=== PATIENT | female | born 1965 | race Caucasian/White ===

== ENCOUNTER 2019-04-05 12:35 | Emergency (ER) | payer BC ==
--- NOTE | 2019-04-05 12:51 | ER Document Report ---
ED Medical Screen (RME) - General Chief Complaint: Psych Problem Stated Complaint: PSYCH EVAL Time Seen by Provider: 04/05/19 12:45 Mode of Arrival: Ambulatory Information source: Patient, Relative - Brother Notes: Patient is a 53-year-old female from [facility] presenting to the emergency department with acute complaints of mental health issues. Patient reports she drove here last night from [place] to be with her brother and she states she is having the feeling of withdrawal symptoms. Patient denies taking any medications. Patient's brother states that patient has been talking out of her head, she believes that people are her worker after her, she believes that she is in danger. They both deny any documented mental health history. Patient is very tearful in triage I have greeted and performed a rapid initial assessment of this patient. A comprehensive ED assessment and evaluation of the patient, analysis of test results and completion of the medical decision making process will be conducted by additional ED providers. I have specifically instructed the patient or family members with the patient to immediately return to any nursing staff should anything change in the patient's condition or with their chief complaint. This medical record was dictated with voice recognizing software. There may be grammatical, syntax errors that are unintended.
[2019-04-05 13:36] LABS: ABSOLUTE BASOPHILS # (AUTO) 0.1 10^3/uL (0.0-0.2); ABSOLUTE EOSINOPHILS # (AUTO) 0.1 10^3/uL (0.0-0.6); ABSOLUTE LYMPHOCYTES (AUTO) 1.8 10^3/uL (0.5-4.7); ABSOLUTE MONOCYTES (AUTO) 0.9 10^3/uL (0.1-1.4); ABSOLUTE NEUT (AUTO) 9.1 10^3/uL (1.7-8.2); BASOPHILS % (AUTO) 0.5 % (0-2); EOSINOPHILS % (AUTO) 0.7 % (0-6); HEMOGLOBIN 14.6 g/dL (12.0-15.5); LYMPHOCYTES % (AUTO) 15.3 % (13-45); MEAN CORPUSCULAR HEMOGLOBIN 30.2 pg (27.0-33.4); MEAN CORPUSCULAR VOLUME 89 fl (80-97); MONOCYTES % (AUTO) 7.7 % (3-13); PLATELET COUNT 283 10^3/uL (150-450); RED BLOOD COUNT 4.85 10^6/uL (3.72-5.28); RED CELL DISTRIBUTION WIDTH 12.7 % (11.5-14.0); SEGMENTED NEUTROPHILS % (AUTO) 75.8 % (42-78); TOTAL CELLS COUNTED % (AUTO) 100 %
[2019-04-05 13:54] LABS: URINE AMPHETAMINES SCREEN NEGATIVE; URINE BARBITURATES SCREEN NEGATIVE; URINE BENZODIAZEPINES SCREEN NEGATIVE; URINE COCAINE SCREEN NEGATIVE; URINE MARIJUANA (THC) SCREEN NEGATIVE; URINE METHADONE SCREEN NEGATIVE; URINE PHENCYCLIDINE SCREEN NEGATIVE
[2019-04-05 13:55] LABS: ALBUMIN 4.8 g/dL (3.5-5.0); ALKALINE PHOSPHATASE 108 U/L (38-126); ANION GAP 13 (5-19); ASPARTATE AMINO TRANSFERASE 24 U/L (14-36); BILIRUBIN,DIRECT 0.1 mg/dL (0.0-0.4); BILIRUBIN,TOTAL 0.5 mg/dL (0.2-1.3); BLOOD UREA NITROGEN 14 mg/dL (7-20); CALCIUM 10.1 mg/dL (8.4-10.2); CARBON DIOXIDE 26 mmol/L (22-30); CHLORIDE 104 mmol/L (98-107); GLUCOSE 104 mg/dL (75-110); POTASSIUM 3.8 mmol/L (3.6-5.0); SALICYLATE 1.1 mg/dL (2.0-20.0); TOTAL PROTEIN 8.5 g/dL (6.3-8.2)
[2019-04-05 13:57] LABS: ACETAMINOPHEN < 10 ug/mL (10-30); ALCOHOL < 10 mg/dL (NONE DETECTED)
--- NOTE | 2019-04-05 14:29 | ER Document Report ---
ED Psych Disorder / Suicide - General Mode of Arrival: Ambulatory <DERREK DUMONT - Last Filed: 04/05/19 18:50> <GINA THURSTON - Last Filed: 04/05/19 22:32> <RASHAD VELASQUEZ - Last Filed: 04/08/19 15:35> - General Chief Complaint: Depression Stated Complaint: PSYCH EVAL Time Seen by Provider: 04/05/19 12:45 Notes: Patient is a 53-year-old female from [facility] with no past mental health history presenting to the emergency department with acute complaints of mental health issues. Patient reports she drove here last night from [place] to be with her brother and she states she is having the feeling of withdrawal symptoms. Patient denies taking any medications. Patient's brother states that patient has been talking out of her head, she believes "members" are out to get her at work and she feels like she is in danger. She denies any suicidal ideations or homicidal ideations denies any auditory or visual hallucinations. Of note, patient's is in route from [place]. (DERREK DUMONT) Past Medical History - General Information source: Patient, Relative - Brother - Social History Smoking Status: Never Smoker Frequency of alcohol use: None Drug Abuse: None Family History: None Patient has suicidal ideation: No Patient has homicidal ideation: No <DERREK DUMONT - Last Filed: 04/05/19 18:50> Review of Systems - Review of Systems Constitutional: No symptoms reported EENT: No symptoms reported Cardiovascular: No symptoms reported Respiratory: No symptoms reported Gastrointestinal: No symptoms reported Genitourinary: No symptoms reported Female Genitourinary: No symptoms reported Musculoskeletal: No symptoms reported Skin: No symptoms reported Hematologic/Lymphatic: No symptoms reported Neurological/Psychological: See HPI <DERREK DUMONT - Last Filed: 04/05/19 18:50> Physical Exam <DERREK DUMONT - Last Filed: 04/05/19 18:50> - Vital signs Vitals: Temp Pulse Resp BP Pulse Ox 98 F 95 28 H 132/96 H 100 04/05/19 12:53 04/05/19 12:53 04/05/19 12:53 04/05/19 12:53 04/05/19 12:53 - Notes Notes: PHYSICAL EXAMINATION: Reviewed vital signs and charting by RN GENERAL: Alert, interacts well. No acute distress. HEAD: Normocephalic, atraumatic. EYES: Pupils equal and round. Extraocular movements intact. ENT: Oral mucosa moist, tongue midline. NECK: Full range of motion. Trachea midline. LUNGS: Clear to auscultation bilaterally, no wheezes, rales, or rhonchi. No respiratory distress. HEART: Regular rate and rhythm. No murmur ABDOMEN: soft, non-tender. No distention. Bowel sounds present EXTREMITIES: Moves all 4 extremities spontaneously. No edema, No cyanosis. PSYCH: Patient is alert and orientated to person, place, time and circumstance, patient is very anxious and tearful. Mood is depressed with congruent affect. Patient denies suicidal and homicidal ideation. Patient does not have a linear thought process at this time but is not tangential. Poor eye contact. Conversational speech is staggered and she is unable to complete full sentences. Intellectual abilities appear to be within the average range. Attention and concentration are currently good. SKIN: Warm, dry, normal turgor. No rashes or lesions noted. (DERREK DUMONT) Course - Laboratory Result Diagrams: 04/05/19 13:15 04/05/19 13:15 <DERREK DUMONT - Last Filed: 04/05/19 18:50> - Laboratory Result Diagrams: 04/05/19 13:15 04/05/19 13:15 <RASHAD VELASQUEZ - Last Filed: 04/08/19 15:35> - Re-evaluation Re-evalutation: 04/05/19 18:47 Patient very tearful upon initial evaluation. She could not put logical thoughts together and just kept referring to the members her work. Blood work all returned within normal limits. Urinalysis showed moderate leuk esterase with 24 WBCs. It has been sent for urine culture. Urine drug screen negative. EKG showed sinus rhythm, rate 93, normal axis, QTC 458, no ST segment elevation or depression. Patient has been medically cleared for psychiatric evaluation. (DERREK DUMONT) - Vital Signs Vital signs: Temp Pulse Resp BP Pulse Ox 97.9 F 73 16 120/76 99 04/08/19 13:50 04/08/19 13:50 04/08/19 13:50 04/08/19 13:50 04/08/19 13:50 - Laboratory Laboratory results interpreted by me: 04/05/19 04/05/19 04/05/19 13:15 13:15 17:51 WBC 12.0 H Absolute Neuts (auto) 9.1 H Total Protein 8.5 H Urine Protein 30 H Urine Ketones 80 H Urine Urobilinogen 2.0 H Ur Leukocyte Esterase MODERATE H Salicylates 1.1 L Acetaminophen < 10 L Discharge <DERREK DUMONT - Last Filed: 04/05/19 18:50> <GINA THURSTON - Last Filed: 04/05/19 22:32> <RASHAD VELASQUEZ - Last Filed: 04/08/19 15:35> - Discharge Clinical Impression: Anxiety Unspecified psychosis Qualifiers: Psychosis type: unspecified psychosis type Qualified Code(s): F29 - Unspecified psychosis not due to a substance or known physiological condition Condition: Stable Disposition: HOME, SELF-CARE Additional Instructions: You were evaluated by both the medical and behavioral health teams while in the Emergency Department and are now deemed appropriate for discharge. During your stay you received the following services: medical and psychiatric evaluations and follow ups, medication management, nursing services, pharmacological intervention, dietary and environmental services, counseling services, case management, patient liaison services, short-term psychotherapy, and radiology services. Your medications include cogentin, keflex, and zyprexa. You are encouraged to continue taking your medications as prescribed and to follow up with a mental health community provider of your choice to help manage your symptoms of transient psychosis and anxiety. Your has been a part of your support system while you were in the hospital and you are encouraged to continue to utilize him in the same capacity. Medication Recommendations: 1. Cogentin 1 mg daily 2. Keflex 500 mg twice per day 3. Zyprexa 5 mg twice per day Anxiety The physician feels that some of your health problems are being caused by anxiety. Anxiety affects your health in many ways. Anxiety alone can cause palpitations, sweats, chest pains, abdominal pains, shortness of breath, and headaches. It contributes to ulcer disease, high blood pressure, irritable bowel syndrome, and has been shown to cause flare-ups of many other diseases. Anxiety is not a simple disorder to treat. If the anxiety is due to recent life stresses, you may simply need time to "work through" the changes. If the anxiety is due to an underlying unhappiness with yourself or due to psychiatric disturbance, professional help will be needed. Your physician can refer you for further help if needed. Anti-anxiety medication is occasionally given if the stress is acute or if you are having trouble sleeping. Chronic or frequent use of these medications is not a good idea because the body becomes reliant on it, preventing you from dealing with life's normal stresses. Psychosis The Physician feels your intermittent psychosis is being caused by periods of undue and high levels of stress. You are encouraged to utilize therapy as a means to learn new cognitive behavioral techniques to cope and manage your symptoms when they arrive, and to stay consistent with your medication regiment. Should your symptoms return or worsen, please return to the Emergency Department or contact your Primary Care Physician.
--- NOTE | 2019-04-05 16:45 | PSYCHOLOGICAL NOTE ---
Psych Note - Psych Note Date seen by psych provider: 04/05/19 Time seen by psych provider: 14:00 Psych Note: Reason For Consult:psychosis Consent Permissions:none provided Patient is very tearful and has difficulty communicating her thoughts. Frequently she stops talking in the middle of a sentence. The patient is constantly looking around during evaluation resulting in poor eye contact. 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 She continued to report she is scared does not feel right that something is going on. When asked if there is anything else important that she felt clinicians needed no she stated that she is unsure who her is. Patient is alert and orientated to person, place. Mood is anxious with congruent affect. Patient is generally looking around the room and is very tearful. Patient denies suicidal and homicidal ideation. Paranoid delusions are present. Thought content is disorganized. Eye contact is poor. Patient has difficulty engaging in conversations, frequently not finishing sentences. Attention and concentration are poor. Insight, judgment, impulse control are poor. Diagnosis: Unspecified psychosis Medication recommendations per [facility]'s contracted psychiatrist Dr. Tracie SOLIS are as follows Risperidone 0.25 mg twice daily Impression\\plan: Patient is recommended for [facility] petition for overnight mental health observation. Patient presents very confused and scared. She states she is unsure if the man stating he is her is actually her . She also reports being scared something is going to happen at her work so she drove from [facility] to her brother's home here locally to feel safer. Patient reportedly has no mental health history. Medication recommendations have been provided. Patient be reevaluated. Dr. Clarke was consulted to care management of this patient; attending physicians in agreement with recommendations and disposition.
[2019-04-05] MEDS: RISPERIDONE 0.25 MG TABLET PO SCH ×4 (17:17→23:24)
[2019-04-05 18:25] LABS: APPEARANCE,URINE CLEAR; BILIRUBIN,URINE NEGATIVE (NEGATIVE); COLOR,URINE YELLOW; GLUCOSE, URINE NEGATIVE (NEGATIVE); KETONES,URINE 80 mg/dL (NEGATIVE); LEUKOCYTE ESTERASE,URINE MODERATE (NEGATIVE); NITRITE,URINE NEGATIVE (NEGATIVE); PROTEIN,URINE 30 mg/dL (NEGATIVE); URINE SPECIFIC GRAVITY 1.033
[2019-04-05] MEDS ORDERED: CEPHALEXIN 500 MG CAPSULE PO ONE (22:31)
--- NOTE | 2019-04-06 00:05 | EKG REPORT ---
SEVERITY:- NORMAL ECG - SINUS RHYTHM : Confirmed by: Minnie Kauffman MD 06-Apr-2019 00:04:52
[2019-04-06] MEDS: RISPERIDONE 0.25 MG TABLET PO SCH (09:49)
[2019-04-06] MEDS: CEPHALEXIN 500 MG CAPSULE PO SCH ×2 (09:49→18:40)
--- NOTE | 2019-04-06 12:39 | ER Document Report ---
Doctor's Note Notes: 04/06/19 11:50 Patient's vital signs and previous labs, diagnostic images reviewed. Reviewed mental health notes, nurse's notes and previous providers notes. VSS. Pt is in no distress at this time. Denies any SI or HI. Patient shows to have a UTI on urinalysis. Patient is getting actively treated with Keflex p.o. to manage UTI symptoms. Urine culture has been sent and is pending. General: A&Ox3. Answers questions appropriately. Heart: RRR Lungs: CTAB Psych: Crying and flat affect A/P: Continue monitoring and rec's per MH. Normal diet Consider placement.
--- NOTE | 2019-04-06 15:23 | PSYCHOLOGICAL NOTE ---
Psych Note - Psych Note Date seen by psych provider: 04/06/19 Time seen by psych provider: 08:30 Psych Note: Reason For Consult:psychosis Consent Permissions:none provided Check in conducted with patient Patient continues to demonstrate very tearful and paranoid. Patient's drove up from [place] and arrived today in the emergency department. Patient noticeably became fearful and confirms she continues to doubt that he is her . Patient's reports patient has never had a episode like this previous. They have been 8 years. Reports approximately 2 weeks ago he noticed some odd behaviors however nothing that was overtly concerning. Patient then started to demonstrate some paranoia last Friday. This was prior to the patient getting into the car and driving to [facility]. Diagnosis: Unspecified psychosis UPDATED Medication recommendations per [facility]'s contracted psychiatrist Dr. Tracie SOLIS are as follows Zyprexa 5mg twice daily Cogentin 1mg daily Impression\plan: Patient is recommended for [facility]C petition for overnight mental health observation. Patient presents very confused and scared. She states she is unsure if the man stating he is her is actually her . She also reports being scared something is going to happen at her work so she drove from [facility] to her brother's home here locally to feel safer. Patient reportedly has no mental health history. Medication recommendations have been provided. Patient be reevaluated. Dr. Clarke was consulted to care management of this patient; attending physicians in agreement with recommendations and disposition.
[2019-04-06] MEDS: BENZTROPINE MESYLATE 1 MG TABLET PO SCH (15:42)
--- NOTE | 2019-04-06 16:03 | RADIOLOGY REPORT (SQ) ---
EXAM DESCRIPTION: CT HEAD WITHOUT COMPLETED DATE/TIME: 04/06/2019 3:31 pm REASON FOR STUDY: AMS COMPARISON: None. TECHNIQUE: Axial images acquired through the brain without intravenous contrast. Images reviewed wi th bone, brain and subdural windows. Additional sagittal and coronal reconstructions were generated. Images stored on PACS. All CT scanners at this facility use dose modulation, iterative reconstruction, and/or weight based d osing when appropriate to reduce radiation dose to as low as reasonably achievable (ALARA). [facility]: Dose Right [facility]: CareDose [facility]: Dose Right [facility]: Teradose 4D [facility]: GROUNDFLOOR RADIATION DOSE: CT Rad equipment meets quality standard of care and radiation dose reduction techniq ues were employed. CTDIvol: 21.4 mGy. DLP: 377 mGy-cm. mGy. LIMITATIONS: None. FINDINGS: There is no acute intracranial hemorrhage, vascular territorial infarct, extra-axial fluid collection, mass effect or midline shift. There is no effacement of cerebral sulci or basal subarac hnoid cisterns. The valente-white matter differentiation is preserved. The caliber the ventricles is c oncordant with the degree of sulcation. There is no fracture of the calvarium. The paranasal sinuse s and the mastoid air cells are clear. The orbits and globes are intact. IMPRESSION: No acute intracranial abnormality. EVIDENCE OF ACUTE STROKE: NO. COMMENT: Quality ID # [id number]: Final reports with documentation of one or more dose reduction techniques (e.g., Automated exposure control, adjustment of the mA and/or kV according to patient size, use of iterative reconstruction technique) TECHNICAL DOCUMENTATION: JOB ID: [id number] [employer]- All Rights Reserved Reading location - IP/workstation name: [email or web address]-RR
[2019-04-06] MEDS: OLANZAPINE 5 MG TABLET PO SCH (18:41)
--- NOTE | 2019-04-07 07:16 | PSYCHOLOGICAL NOTE ---
Psych Note - Psych Note Date seen by psych provider: 04/07/19 Time seen by psych provider: 07:00 Psych Note: 07:00: Clinician attempted to conduct patient's reevaluation. Patient was sleeping and unarousable to verbal stimuli. Plan is to reevaluate later today. Update: Reason For Consult: psychosis Consent Permissions: none provided Check in conducted with patient Patient continues to present as tearful and paranoid. Patient states medication has been helpful. Patient spoke of someone trying to take my identity. Patient frequently responded somethings not right. Patient spoke of an event like this happening 10 years ago. Clinician understood patient to state the event lead to an inpatient hospitalization. Patient reported being prescribed medication to manage depression and anxiety symptoms. Patient stated she worked with her Psychiatrist to wean myself off of the medication. Patient stated she would have to obtain her medical records to get the information about her inpatient hospitalization and prescribed medications. Patient stated she could not remember details. Patient frequently became emotional and tearful stating, I dont know, something is just not right. Patient presented as somewhat guarded with her answers. Clinician obtained collateral information from , Emre Phillips. Spouse reports seeing little things that were concerning beginning a month ago. Spouse reports patient patient verbalized persecutory delusions. Spouse stated that patient believes she made a mistake at work that could result in her termination. Spouse reached out to employer who denied such incident took place. Patient emailed sister in law upset and confronted sister in law about talking about her behind her back. Spouse denied such an incident on behalf of his sister. Patient recently blocked all contact from her brother because she d isagreed with him. Spouse stated patient would lay around the house all day. Spouse stated he thought she was just overwhelmed with work and needed to rest. Patient stated he went to their other home to do home maintenance and when he called to see what she wanted for dinner, patient stated she was on the way to see her brother. Spouse denies knowledge of current mental health diagnosis. Clinician entered room with patients spouse. Patient asked by clinician who this gentleman with clinician is, and client verbalized that he is my , Emre Phillips. Patient verbalized a belief that she was safe with spouse. Patients body language is suggestive of patient being uncomfortable with spouse. Patient began to ring her hands and look side to side when spouse entered the room, however patient continued to verbalize a desire for him to be in the room, he was her , and she was safe in his presence. Patient requested to see her brother several times. Patient is alert and oriented to person, place, time and circumstance. Mood is nervous and scared as observed by patient being tearful and emotional and repeatedly stating "something is wrong". Patient denies suicidal and homicidal ideation. Patient denies auditory and visual hallucinations. Delusions are absent and behavior is congruent with an intact reality based presentation (i.e. organized and linear thought processes). There is no observed behavior that suggests patient is responding to internal stimuli. Eye contact is good. Conversational speech is not within normal range. Speech is soft and somewhat monotone. Intellectual ability appears to be within average range. Attention and concentration are fair. Insight, judgment, and impulse control are poor Diagnosis: Unspecified psychosis Medication recommendations per [facility]'s contracted psychiatrist Dr. Tracie SOLIS are as follows Zyprexa 5mg twice daily Cogentin 1mg daily Impression\\plan: Patient is recommended for IVC petition to be maintained. Patient continues to present as very confused and scared. Patient reports a prior mental health history, however is unable or unwilling to provide details such as diagnosis and prescribed medications. Medication recommendations have been provided. Patient be reevaluated. Dr. Clarke was consulted to care management of this patient; attending physicians in agreement with recommendations and disposition.
[2019-04-07] MEDS: OLANZAPINE 5 MG TABLET PO SCH ×2 (10:02→17:17)
[2019-04-07] MEDS: BENZTROPINE MESYLATE 1 MG TABLET PO SCH (10:02)
[2019-04-07] MEDS: CEPHALEXIN 500 MG CAPSULE PO SCH ×2 (10:02→17:17)
--- NOTE | 2019-04-07 13:20 | ER Document Report ---
Doctor's Note Notes: 04/07/19 13:20 Chart reviewed, patient reevaluated. Patient resting in stretcher with eyes closed. Patient denies any current needs today. Heart sounds S1-S2 present with no ectopy noted. Abdomen soft nontender, lung sounds clear and equal. Pending placement.
[2019-04-08] MEDS: BENZTROPINE MESYLATE 1 MG TABLET PO SCH (09:36)
[2019-04-08] MEDS: CEPHALEXIN 500 MG CAPSULE PO SCH (09:36)
[2019-04-08] MEDS: OLANZAPINE 5 MG TABLET PO SCH (09:36)
--- NOTE | 2019-04-08 15:34 | ER Document Report ---
Doctor's Note Notes: 04/08/19 15:33 Patient's vital signs and previous labs, diagnostic images reviewed. Reviewed mental health notes, nurse's notes and previous providers notes. VSS. Pt is in no distress at this time. Denies any SI or HI. Patient laying in bed and watching tv General: A&Ox3. Answers questions appropriately. Heart: RRR Lungs: CTAB Psych: Flat affect A/P: Continue monitoring and rec's per MH. Normal diet Patient will be discharged home with . Medication doses have been placed.
--- NOTE | 2019-04-08 15:45 | PSYCHOLOGICAL NOTE ---
Psych Note - Psych Note Date seen by psych provider: 04/08/19 Time seen by psych provider: 15:00 Psych Note: Met with patient and to discuss plan of care at discharge. Patient expressed a desire and readiness for discharge. Patient stated she will remain in the area after discharge until "she feels up to driving back." Patient's is in agreement with the plan. Patient and will be staying with patient's brother in his home in [place]. Patient gave an address of: [facility] [place] [address]. Patient is alert and oriented to person, place, time and circumstance. Mood is normal with congruent affect as evidenced by smiling, laughing and engaging with clinician. Patient denies suicidal and homicidal ideation. Delusions are absent and behavior is congruent with an intact reality based presentation (i.e. organized and linear thought processes). Patient denies auditory and visual hallucinations. There is no observed behavior that suggests patient is responding to internal stimuli. Eye contact is good. Conversational speech is within normal rate, tone, and prosody. Intellectual ability appears to be within average range. Attention and concentration are good. Insight, judgment, and impulse control are good. Impression/Plan: Patient is cleared from acute psychiatric services. Patient no longer meets IVC criteria per [place] GS 122C. It is recommened that IVC be rescinded. Patient denies suicidal an homicidal ideations. Delusions are absent and behavior is congruent with an intact reality based presentation. Medication recommendations have been provided. It is recommenced that patient follow up with outpatient providers for medication management and mental health services during the extended trip. Upon patient's return to her home, it is recommended that patient seek psychological evaluation to identify the cause for these episodes. Patient's has agreed to be part of her plan of care. Patient and are in agreement with plan of care. Patient will be provided with a community mental health resource list. Dr. Clarke was consulted on the care and management of this patient; attending physician is in agreement with recommendations and disposition.
[2019-04-08 17:00] VITALS: BP 120/82
== END 2019-04-08 17:00 | disposition home or self-care (01) ==
LOC: ER 12:35
DX: F41.9 Anxiety disorder, unspecified (principal); F32.9 Major depressive disorder, single episode, unspecified; F29 Unspecified psychosis not due to a substance or known physiological condition
CPT/HCPCS: 93005; 36415; 87086; 80307 ×4; 84443; 84703; 85025; 80053; 81001; 93010; J3490 ×2; 99285